=== PATIENT | female | born 1965 | race Caucasian/White ===

== ENCOUNTER 2017-08-15 18:25 | Emergency (ER) | payer OTHER ==
[~2017-08-15] VITALS: Ht 165.1 cm; Wt 77.1 kg
[2017-08-15 18:25] VITALS: BP_SYST 187
--- NOTE | 2017-08-15 18:25 | NUR ---
Patient to ER bed 03 to gown for evaluation. Side rails up. Report given to
--- NOTE | 2017-08-15 18:30 | NUR ---
ER at bedside examining patient.
[2017-08-15] MEDS ORDERED: NACL 0.9% 1,000 ML IV ONE ×2 (18:35→18:45)
--- NOTE | 2017-08-15 18:40 | NUR ---
Patient to ER via triage with c/o left sided weakness x 1 day, patient also c/o pain to her left side x 2 days, patient reports that she has taken Soma at home without relief. Patient is awake, alert and oriented in no acute distress, BP elevated but vital signs stable, respirations even and unlabored, skin warm and dry to touch. Patient able to move all extremities without difficulty, no c/o pain upon movement, no weakness noted to extremities. No numbness/tingling reported. Patient has been seen and evaluated by Dr Pascual, will continue to observe and assess.
[2017-08-15] MEDS ORDERED: ONDANSETRON HCL 4 MG/2 ML VIAL IVP ONE (18:45)
[2017-08-15] MEDS ORDERED: DIPHENHYDRAMINE INJ 50 MG/ML VIAL IVP ONE (18:45)
[2017-08-15] MEDS ORDERED: MORPHINE 4 MG/ML INJ. SYRINGE IVP ONE (18:45)
--- NOTE | 2017-08-15 18:45 | NUR ---
Lab at bedside to obtain blood specimens.
--- NOTE | 2017-08-15 18:50 | NUR ---
X-ray at bedside for films.
[2017-08-15 18:53] LABS: BASOPHILS % (AUTO) 0.4 % (0.0-2.0); EOSINOPHILS # (AUTO) 0.1 K/uL (0.0-0.4); EOSINOPHILS % (AUTO) 1.9 % (0.0-4.0); HEMATOCRIT 36.7 % (36-48); HEMOGLOBIN 12.5 g/dL (12.0-16.0); LYMPHOCYTES # (AUTO) 1.8 K/uL (1.0-5.5); LYMPHOCYTES % (AUTO) 26.6 % (20.5-51.5); MEAN CORPUSCULAR HEMOGLOBIN 33 pg (27-31); MEAN CORPUSCULAR HGB CONC 34 % (32-36); MEAN CORPUSCULAR VOLUME 97 fL (79.0-98.0); MONOCYTES # (AUTO) 0.5 K/uL (0.0-1.0); MONOCYTES % (AUTO) 7.5 % (1.7-9.3); NEUTROPHILS # (AUTO) 4.2 K/uL (1.8-7.7); NEUTROPHILS % (AUTO) 63.6 % (40.0-70.0); PLATELET COUNT (AUTO) 202 K/uL (130-430); RED BLOOD CELL COUNT(AUTO) 3.81 MIL/uL (4.2-6.2); RED CELL DISTRIBUTION WIDTH 14.2 % (9.0-15.0); WHITE BLOOD COUNT (AUTO) 6.6 K/uL (4.8-10.8)
[2017-08-15 18:53] LABS: BILIRUBIN,URINE NEGATIVE (NEGATIVE); CLARITY/URINE SL HAZY (CLEAR); COLOR,URINE YELLOW (YELLOW); GLUCOSE,URINE NEGATIVE (NEGATIVE); KETONES,URINE NEGATIVE (NEGATIVE); LEUKOCYTE ESTERASE ,URINE NEGATIVE (NEGATIVE); NITRITE, URINE NEGATIVE (NEGATIVE); PH,URINE 6.5 (5.0-8.0); PROTEIN URINE NEGATIVE (NEGATIVE); UROBILINOGEN,URINE 0.2 (0.2-1.0)
[2017-08-15 19:01] LABS: BLOOD, URINE TRACE (NEGATIVE)
[2017-08-15 19:03] LABS: BACTERIA,URINE MODERATE /HPF (None Seen); MUCUS,URINE 1+ /LPF (None Seen); RBC,URINE 0-3 /HPF (0-3); WBC,URINE 0-3 /HPF (0-3)
[2017-08-15] MEDS ORDERED: ONDANSETRON HCL 4 MG/2 ML VIAL ONE (19:03)
[2017-08-15] MEDS ORDERED: DIPHENHYDRAMINE INJ 50 MG/ML VIAL ONE (19:03)
[2017-08-15 19:04] LABS: CALCIUM 8.8 mg/dL (8.4-11.0); CREATININE 0.86 mg/dL (0.55-1.30); POTASSIUM 3.7 mmol/L (3.5-5.1)
[2017-08-15] MEDS ORDERED: MORPHINE 4 MG/ML INJ. SYRINGE ONE (19:04)
--- NOTE | 2017-08-15 19:05 | NUR ---
IV fluids infusing without difficulty, no redness or swelling noted at site.
[2017-08-15 19:07] LABS: PROTHROMBIN TIME 9.8 SECS (9.5-12.5)
[2017-08-15 19:10] LABS: ALBUMIN 3.4 g/dL (3.4-4.8); TOTAL BILIRUBIN 0.3 mg/dL (0.0-1.0)
[2017-08-15 20:00] VITALS: BP_SYST 161
--- NOTE | 2017-08-15 20:00 | NUR ---
Patient given written and verbal discharge instructions and verbalizes understanding. ER MD discussed with patient the results and treatment provided. Patient in stable condition. ID arm band removed. IV catheter removed intact and dressing applied, no active bleeding. Rx of Colace, Ativan, Tramadol given. Patient educated on pain management and to follow up with PMD. Pain Scale 2. Opportunity for questions provided and answered. Medication side effect fact sheet provided. Patient left ER ambulating with slow, steady gait in no acute distress. No adverse reaction noted to medication. No questions related to aftercare. Patient to have friends drive patient home.
[2017-08-15] MEDS ORDERED: TUBERCULIN,PURIF.PROT.DERIV. 0.1 ML SYR ID ONE ×2 (20:11→22:28)
[2017-08-16] MEDS ORDERED: TUBERCULIN,PURIF.PROT.DERIV. 0.1 ML SYR ID ONE (05:21)
== END 2017-08-15 20:00 | disposition home or self-care (01) ==
LOC: SED 18:25
DX: G89.29 Other chronic pain (principal); M54.5 Low back pain; F41.9 Anxiety disorder, unspecified; I10 Essential (primary) hypertension; R79.1 Abnormal coagulation profile
CPT/HCPCS: 36415; 71045; 80053; 81000; 82150; 82550; 83690; 85025; 85610; 85730; 87086; 93005; 96374; 96375; 99285; J1200; J2270; J2405; J7030; 86580